=== PATIENT | female | born 1965 | race Caucasian/White ===

== ENCOUNTER 2016-10-30 11:03 | Emergency (ER) | payer MEDICAID ==
[~2016-10-30] VITALS: Ht 177.8 cm; Wt 89.4 kg
[~2016-10-30 11:03] MED LIST: FURO20TA; GLIP-116 OR; GLUCOPHAGE PO; INSLANTI; LISIPOW
[2016-10-30] MEDS ORDERED: SODIUM CHLORIDE 0.9% 1,000 ML IV ONE (11:44)
[2016-10-30 11:54] LABS: Basophils # (auto) 0 uL; Basophils % (auto) 0.3 % (0.0-2.0); CONDITION Y; Eosinophils # (auto) 0 uL; Eosinophils % (auto) 0.7 % (0.0-7.0); Hematocrit 40.2 % (36.0-46.0); Hemoglobin 13.8 g/dL (12.2-16.2); Lymphocytes # (auto) 2.1 uL; Lymphocytes % (auto) 33.1 % (10.0-50.0); Mean Corpuscular Hemoglobin 29.5 pg (28.0-32.0); Mean Corpuscular Hgb Conc. 34.3 g/dL (32.0-36.0); Mean Corpuscular Volume 85.8 fL (80.0-100.0); Monocytes # (auto) 0.5 uL; Monocytes % (auto) 7.4 % (0.0-12.0); Neutrophils # (auto) 3.8 uL; Neutrophils % (auto) 58.5 % (37.0-80.0); Platelet Count (auto) 314 10^3/uL (140-450); Red Cell Distribution Width 13.6 % (11.6-16.0); White Blood Cell 6.5 10^3/uL (4.4-10.8)
[2016-10-30 12:17] LABS: Albumin 3.9 g/dL (3.4-5.0); Alkaline Phosphatase 135 U/L (45-117); Anion Gap 9 (5-15); Aspartate Aminotransferase 17 U/L (15-37); BUN/Creatinine Ratio 25.4; Bilirubin, Total 0.4 mg/dL (0.2-1.0); Blood Urea Nitrogen 29 mg/dL (7-18); Calcium 9.8 mg/dL (8.5-10.1); Carbon Dioxide 26 mmol/L (21-32); Chloride 102 mmol/L (98-107); GFR African American 64 mL/min; GFR Non-African American 53 mL/min; Glucose 209 mg/dL (74-106); Magnesium 2.3 mg/dL (1.6-2.6); Potassium 3.9 mmol/L (3.5-5.1); Sodium 137 mmol/L (136-145); Total Protein 8.7 g/dL (6.4-8.2)
[2016-10-30 14:02] LABS: Urine Bilirubin Negative (Negative); Urine Blood TRACE /uL (Negative); Urine Color Yellow (Yellow); Urine Glucose 4+ mg/dL (Normal); Urine Hyaline Cast FEW /lpf (0 - 2); Urine Ketone Negative (Negative); Urine Mucus FEW (None Seen); Urine Nitrite Negative (Negative); Urine RBC 2 /hpf (0 - 4); Urine Squamous Epithelial Cell MOD /hpf (<5); Urine Urobilinogen Normal (Negative); Urine pH 5.5 (5.0-8.0)
[2016-10-30 15:08] VITALS: BP 160/88
== END 2016-10-30 16:07 | disposition home or self-care (01) ==
LOC: EDBD 11:03 → ER 11:03
DX: R53.1 Weakness (principal); E11.65 Type 2 diabetes mellitus with hyperglycemia; N39.0 Urinary tract infection, site not specified; Z86.73 Personal history of transient ischemic attack (TIA), and cerebral infarction without residual deficits; I50.9 Heart failure, unspecified; I11.0 Hypertensive heart disease with heart failure
CPT/HCPCS: 36415; 71020; 80053; 81001; 83735; 84443; 84484; 85025; 85379; 93005; 94761; 96360; 99285; J7030

== ENCOUNTER 2017-07-31 11:20 | Inpatient (IN) | payer MEDICAID ==
[~2017-07-31] VITALS: Ht 177.8 cm; Wt 82.7 kg
[2017-07-31] MEDS ORDERED: SODIUM CHLORIDE 0.9% 500 ML IV ONE (11:25)
[2017-07-31] MEDS ORDERED: DEXTROSE 50% SYRINGE 50 ML IV ONE (11:26)
[2017-07-31] MEDS ORDERED: DEXTROSE (50%) 50ML SYRG IV ONE ×2 (11:30→13:30)
[2017-07-31] MEDS ORDERED: D5W 5% 500 ML IV ONE (12:00)
[2017-07-31 12:05] LABS: Basophils # (auto) 0 uL; Basophils % (auto) 0.3 % (0.0-2.0); Eosinophils # (auto) 0.1 uL; Hematocrit 35.7 % (36.0-46.0); Hemoglobin 11.8 g/dL (12.2-16.2); Lymphocytes # (auto) 2.4 uL; Lymphocytes % (auto) 40.4 % (10.0-50.0); Mean Corpuscular Hemoglobin 28.5 pg (28.0-32.0); Mean Corpuscular Volume 86.3 fL (80.0-100.0); Monocytes # (auto) 0.4 uL; Monocytes % (auto) 6.3 % (0.0-12.0); Neutrophils # (auto) 3.2 uL; Nucleated Red Blood Cells % 0.1 %; Platelet Count (auto) 267 10^3/uL (140-450); Red Blood Cells 4.14 10^6/uL (4.0-5.20); Red Cell Distribution Width 13.3 % (11.8-14.3); White Blood Cell 6.1 10^3/uL (4.4-10.8)
[2017-07-31 12:19] LABS: Alanine Aminotransferase 17 U/L (13-56); Albumin 3.5 g/dL (3.4-5.0); Alkaline Phosphatase 92 U/L (45-117); Anion Gap 10 (5-15); Aspartate Aminotransferase 12 U/L (15-37); BUN/Creatinine Ratio 20.7; Bilirubin, Total 0.3 mg/dL (0.2-1.0); Blood Urea Nitrogen 28 mg/dL (7-18); Calcium 9.3 mg/dL (8.5-10.1); Carbon Dioxide 26 mmol/L (21-32); Chloride 104 mmol/L (98-107); GFR African American 53 mL/min; GFR Non-African American 43 mL/min; Glucose 91 mg/dL (74-106); Magnesium 2.2 mg/dL (1.6-2.6); Potassium 3.1 mmol/L (3.5-5.1); Sodium 140 mmol/L (136-145); Total Protein 7.8 g/dL (6.4-8.2)
[2017-07-31 12:34] LABS: Urine Bacteria FEW /hpf (None Seen); Urine Blood Negative /uL (Negative); Urine Mucus FEW (None Seen); Urine Specific Gravity 1.018 (1.001-1.035); Urine WBC 11 /hpf (0 - 5)
[2017-07-31] MEDS ORDERED: ACCU-CHEK COMFORT CURVE STRIP VI PRN (14:15)
[2017-07-31] MEDS ORDERED: DEXTROSE (50%) 50ML SYRG IV PRN (14:15)
[2017-07-31] MEDS ORDERED: TEMAZEPAM 15 MG CAP PO PRN (14:30)
[2017-07-31] MEDS ORDERED: MORPHINE SULFATE 8mg/ml INJ SDV IV PRN ×2 (14:30)
[2017-07-31] MEDS ORDERED: HYDROcodone-ACET 5/325MG TAB PO PRN (14:30)
[2017-07-31] MEDS ORDERED: ASCORBIC ACID 500 MG TAB PO ONE (14:30)
[2017-07-31] MEDS ORDERED: FAMOTIDINE 20 MG TAB PO ONE (14:30)
[2017-07-31] MEDS ORDERED: cefTRIAXone 1GM/10ml IVPUSH 10 ML IV ONE ×2 (14:30→14:45)
[2017-07-31] MEDS ORDERED: ZINC SULFATE 220 MG CAP PO ONE (14:30)
[2017-07-31] MEDS ORDERED: DEXTROSE 10% 1,000 ML IV ONE (14:30)
[2017-07-31] MEDS ORDERED: DOCUSATE SOD 100 MG CAP PO PRN (14:30)
[2017-07-31] MEDS ORDERED: NITROGLYCERIN 0.4 MG SL TAB SL PRN (14:30)
[2017-07-31] MEDS: ONDANSETRON HCL 4 MG/2 ML VIAL IV PRN (15:53)
[2017-07-31] MEDS: ACETAMINOPHEN 325 MG TAB PO PRN (17:21)
[2017-07-31] MEDS: ASCORBIC ACID 500 MG TAB PO SCH (22:00)
[2017-07-31] MEDS: FAMOTIDINE 20 MG TAB PO SCH (22:00)
[2017-07-31] MEDS: CLINDAMYCIN 300MG IV 50 ML IV SCH (22:59)
[2017-08-01 05:11] LABS: Basophils # (auto) 0 uL; Basophils % (auto) 0.3 % (0.0-2.0); Eosinophils # (auto) 0.1 uL; Eosinophils % (auto) 1.1 % (0.0-7.0); Hematocrit 34.3 % (36.0-46.0); Hemoglobin 11.7 g/dL (12.2-16.2); Lymphocytes # (auto) 2.8 uL; Lymphocytes % (auto) 48.8 % (10.0-50.0); Mean Corpuscular Hemoglobin 29.3 pg (28.0-32.0); Mean Corpuscular Hgb Conc. 33.9 g/dL (32.0-36.0); Mean Corpuscular Volume 86.3 fL (80.0-100.0); Monocytes # (auto) 0.5 uL; Monocytes % (auto) 8.3 % (0.0-12.0); Neutrophils # (auto) 2.3 uL; Neutrophils % (auto) 41.5 % (37.0-80.0); Nucleated Red Blood Cells % 0.1 %; Platelet Count (auto) 226 10^3/uL (140-450); Red Blood Cells 3.98 10^6/uL (4.0-5.20); Red Cell Distribution Width 13.6 % (11.8-14.3); White Blood Cell 5.6 10^3/uL (4.4-10.8)
[2017-08-01 05:15] LABS: BUN/Creatinine Ratio 18.9; Calcium 9.2 mg/dL (8.5-10.1); Potassium 4.3 mmol/L (3.5-5.1)
[2017-08-01 05:17] LABS: Bilirubin, Total 0.2 mg/dL (0.2-1.0); Total Protein 7.2 g/dL (6.4-8.2)
[2017-08-01] MEDS: CLINDAMYCIN 300MG IV 50 ML IV SCH ×2 (06:00→14:18)
[2017-08-01] MEDS: ACETAMINOPHEN 325 MG TAB PO PRN (07:49)
[2017-08-01 08:10] VITALS: BP_SYST 123; BP_SYST 94; BP_DIAS 61; BP_DIAS 73
[2017-08-01] MEDS ORDERED: cefTRIAXone 1GM/10ml IVPUSH 10 ML IV SCH (09:00)
[2017-08-01] MEDS: ZINC SULFATE 220 MG CAP PO SCH (10:00)
[2017-08-01] MEDS: FAMOTIDINE 20 MG TAB PO SCH ×3 (10:00→21:26)
[2017-08-01] MEDS: ASCORBIC ACID 500 MG TAB PO SCH ×3 (10:00→21:26)
[2017-08-01] MEDS: MULTIPLE VITAMIN TAB PO SCH (10:00)
[2017-08-01] MEDS: cefTRIAXone 1GM/10ml IVPUSH 10 ML IV SCH (10:29)
[2017-08-01 11:50] VITALS: BP 144/87
[2017-08-01] MEDS: SILVER SULFADIAZINE 1 % TOPICAL CREAM 50GM TOP SCH (13:04)
[2017-08-01] MEDS: ONDANSETRON HCL 4 MG/2 ML VIAL IV PRN (13:05)
[2017-08-01 15:51] VITALS: BP 164/89
[2017-08-01] MEDS: SODIUM CHLORIDE 0.9% 1,000 ML IV SCH (16:00)
[2017-08-01 19:58] VITALS: BP 167/80
[2017-08-01 22:00] VITALS: BP 152/70
[2017-08-02] VITALS (9 sets, daily range): BP systolic 139–173; BP diastolic 69–90
[2017-08-02 06:40] LABS: Basophils # (auto) 0 uL; Basophils % (auto) 0.4 % (0.0-2.0); Eosinophils # (auto) 0.1 uL; Eosinophils % (auto) 1.4 % (0.0-7.0); Hemoglobin 11.6 g/dL (12.2-16.2); Lymphocytes % (auto) 38.3 % (10.0-50.0); Mean Corpuscular Hemoglobin 29.5 pg (28.0-32.0); Mean Corpuscular Hgb Conc. 34.1 g/dL (32.0-36.0); Mean Corpuscular Volume 86.7 fL (80.0-100.0); Monocytes # (auto) 0.4 uL; Neutrophils # (auto) 2.8 uL; Neutrophils % (auto) 51.9 % (37.0-80.0); Nucleated Red Blood Cells % 0.1 %; Platelet Count (auto) 238 10^3/uL (140-450); Red Blood Cells 3.92 10^6/uL (4.0-5.20); Red Cell Distribution Width 13.4 % (11.8-14.3); White Blood Cell 5.3 10^3/uL (4.4-10.8)
[2017-08-02 07:01] LABS: Anion Gap 8 (5-15); BUN/Creatinine Ratio 20.7; Blood Urea Nitrogen 23 mg/dL (7-18); Calcium 9.2 mg/dL (8.5-10.1); Carbon Dioxide 27 mmol/L (21-32); Chloride 105 mmol/L (98-107); Cholesterol 265 mg/dL (< 200); GFR African American 66 mL/min; GFR Non-African American 54 mL/min; Glucose 282 mg/dL (74-106); HDL Cholesterol 32 mg/dL (40-59); Magnesium 2.2 mg/dL (1.6-2.6); Potassium 4.4 mmol/L (3.5-5.1); Sodium 140 mmol/L (136-145); Triglycerides 526 mg/dL (< 150)
[2017-08-02] MEDS: SODIUM CHLORIDE 0.9% 1,000 ML IV SCH (07:52)
[2017-08-02] MEDS: cefTRIAXone 1GM/10ml IVPUSH 10 ML IV SCH (07:53)
[2017-08-02] MEDS: ASCORBIC ACID 500 MG TAB PO SCH ×3 (09:44→21:44)
[2017-08-02] MEDS: FAMOTIDINE 20 MG TAB PO SCH ×3 (09:44→21:43)
[2017-08-02] MEDS: MULTIPLE VITAMIN TAB PO SCH (09:44)
[2017-08-02] MEDS: ZINC SULFATE 220 MG CAP PO SCH (09:44)
[2017-08-02] MEDS: SILVER SULFADIAZINE 1 % TOPICAL CREAM 50GM TOP SCH (09:45)
[2017-08-02] MEDS ORDERED: SODIUM CHLORIDE 0.9% 1,000 ML IV SCH (11:00)
[2017-08-02] MEDS: LISINOPRIL 20 MG TAB PO SCH (11:59)
[2017-08-02] MEDS ORDERED: INSULIN LANTUS (GLARGINE) 1 /0.01ml (100units/ml) SC SCH (22:00)
[2017-08-03 00:13] VITALS: BP 162/76
[2017-08-03 05:36] VITALS: BP 149/77
[2017-08-03 06:29] LABS: Basophils # (auto) 0 uL; Basophils % (auto) 0.5 % (0.0-2.0); Eosinophils # (auto) 0.1 uL; Eosinophils % (auto) 1.6 % (0.0-7.0); Hematocrit 33.6 % (36.0-46.0); Hemoglobin 11.6 g/dL (12.2-16.2); Lymphocytes # (auto) 2.5 uL; Lymphocytes % (auto) 44.7 % (10.0-50.0); Mean Corpuscular Hemoglobin 29.8 pg (28.0-32.0); Mean Corpuscular Hgb Conc. 34.5 g/dL (32.0-36.0); Mean Corpuscular Volume 86.2 fL (80.0-100.0); Monocytes # (auto) 0.5 uL; Monocytes % (auto) 9.1 % (0.0-12.0); Neutrophils # (auto) 2.5 uL; Neutrophils % (auto) 44.1 % (37.0-80.0); Platelet Count (auto) 215 10^3/uL (140-450); Red Blood Cells 3.89 10^6/uL (4.0-5.20); Red Cell Distribution Width 13.4 % (11.8-14.3); White Blood Cell 5.7 10^3/uL (4.4-10.8)
[2017-08-03 06:53] LABS: Calcium 9.4 mg/dL (8.5-10.1); Potassium 4.2 mmol/L (3.5-5.1)
[2017-08-03 08:24] VITALS: BP 121/62
[2017-08-03] MEDS: LISINOPRIL 20 MG TAB PO SCH (10:00)
[2017-08-03] MEDS ORDERED: METOPROLOL SUCCINATE XL 50 MG TAB PO SCH (10:00)
[2017-08-03] MEDS: ZINC SULFATE 220 MG CAP PO SCH (10:04)
[2017-08-03] MEDS: FAMOTIDINE 20 MG TAB PO SCH (10:04)
[2017-08-03] MEDS: MULTIPLE VITAMIN TAB PO SCH (10:07)
[2017-08-03] MEDS: ASCORBIC ACID 500 MG TAB PO SCH (10:07)
[2017-08-03] MEDS: SILVER SULFADIAZINE 1 % TOPICAL CREAM 50GM TOP SCH (10:08)
[2017-08-03] MEDS ORDERED: ONDANSETRON HCL 4 MG/2 ML VIAL IV PRN (11:00)
[2017-08-03] MEDS ORDERED: SODIUM CHLORIDE 0.9% 1,000 ML IV ONE (11:00)
[2017-08-03 12:32] VITALS: BP 143/76
[2017-08-03] MEDS ORDERED: InsuLIN REG 1unit/0.01ml Soln (100units/ml) SC SCH ×2 (17:00→22:00)
[2017-08-03 17:05] VITALS: BP 151/79
[2017-08-03] MEDS ORDERED: INSULIN LANTUS (GLARGINE) 1 /0.01ml (100units/ml) SC SCH (22:00)
== END 2017-08-03 21:00 | disposition left against medical advice (07) | DRG 204 ==
LOC: ER 11:20 → EDBD 11:20 → OVERFLOW 11:21 → DOU IN ICU 08-01 08:09 → TELE-WESTW 08-01 21:48
PROVIDERS: ADMIT Internal Medicine; ATTEND Internal Medicine
DX: I95.1 Orthostatic hypotension (principal); I13.0 Hypertensive heart and chronic kidney disease with heart failure and stage 1 through stage 4 chronic kidney disease, or unspecified chronic kidney disease; E11.21 Type 2 diabetes mellitus with diabetic nephropathy; E11.40 Type 2 diabetes mellitus with diabetic neuropathy, unspecified; I50.9 Heart failure, unspecified; E11.621 Type 2 diabetes mellitus with foot ulcer; N39.0 Urinary tract infection, site not specified; E11.22 Type 2 diabetes mellitus with diabetic chronic kidney disease; E87.6 Hypokalemia; L97.509 Non-pressure chronic ulcer of other part of unspecified foot with unspecified severity; D63.8 Anemia in other chronic diseases classified elsewhere; E11.649 Type 2 diabetes mellitus with hypoglycemia without coma; E78.5 Hyperlipidemia, unspecified; F17.200 Nicotine dependence, unspecified, uncomplicated; T38.3X5A Adverse effect of insulin and oral hypoglycemic [antidiabetic] drugs, initial encounter; Z79.82 Long term (current) use of aspirin; Z82.49 Family history of ischemic heart disease and other diseases of the circulatory system; Z83.3 Family history of diabetes mellitus; Z86.73 Personal history of transient ischemic attack (TIA), and cerebral infarction without residual deficits; Z98.51 Tubal ligation status; Z88.1 Allergy status to other antibiotic agents; Y92.89 Other specified places as the place of occurrence of the external cause; Z79.899 Other long term (current) drug therapy
CPT/HCPCS: 36415; 70450; 71045; 80048; 80053; 80061; 81001; 82962; 83036; 83735; 84443; 84484; 85025; 87081; 87086; 93005; 93306; 93886; 96374; 96376; 97110; 97116; 97163; 97530; G0378; J1815; J2405; J3490

== ENCOUNTER 2017-08-09 02:03 | Emergency (ER) | payer MEDICAID ==
[~2017-08-09] VITALS: Ht 177.8 cm; Wt 81.6 kg
[2017-08-09 02:57] LABS: Basophils # (auto) 0 uL; Basophils % (auto) 0.6 % (0.0-2.0); Eosinophils # (auto) 0 uL; Eosinophils % (auto) 0.6 % (0.0-7.0); Hematocrit 33.6 % (36.0-46.0); Hemoglobin 11.4 g/dL (12.2-16.2); Lymphocytes # (auto) 2.2 uL; Lymphocytes % (auto) 34.9 % (10.0-50.0); Mean Corpuscular Hemoglobin 29.1 pg (28.0-32.0); Mean Corpuscular Hgb Conc. 33.9 g/dL (32.0-36.0); Monocytes # (auto) 0.5 uL; Monocytes % (auto) 8.1 % (0.0-12.0); Neutrophils # (auto) 3.5 uL; Neutrophils % (auto) 55.8 % (37.0-80.0); Platelet Count (auto) 244 10^3/uL (140-450); Red Blood Cells 3.91 10^6/uL (4.0-5.20); Red Cell Distribution Width 13.8 % (11.8-14.3); White Blood Cell 6.3 10^3/uL (4.4-10.8)
[2017-08-09 03:12] LABS: INR 0.97 (0.9-1.15); Partial Thromboplastin Time 26.4 sec (23.78-33.04); Prothrombin Time 10.4 sec (9.27-12.13)
[2017-08-09 03:17] LABS: Alanine Aminotransferase 18 U/L (13-56); Albumin 3.2 g/dL (3.4-5.0); Anion Gap 11 (5-15); Aspartate Aminotransferase 13 U/L (15-37); BUN/Creatinine Ratio 19.4; Blood Alcohol < 3.0 mg/dL (0-5); Blood Urea Nitrogen 24 mg/dL (7-18); Calcium 8.7 mg/dL (8.5-10.1); Carbon Dioxide 25 mmol/L (21-32); Chloride 104 mmol/L (98-107); GFR African American 58 mL/min; GFR Non-African American 48 mL/min; Glucose 136 mg/dL (74-106); Magnesium 2.1 mg/dL (1.6-2.6); Potassium 3.4 mmol/L (3.5-5.1); Sodium 140 mmol/L (136-145)
[2017-08-09 03:22] LABS: Alkaline Phosphatase 91 U/L (45-117); Bilirubin, Total 0.2 mg/dL (0.2-1.0); Total Protein 7.7 g/dL (6.4-8.2)
[2017-08-09 04:03] LABS: Alcohol, Urine < 3.0 mg/dL (0-5); Amphetamine Screen, Urine POSITIVE (NEGATIVE); Barbiturate Scree,Urine NEGATIVE (NEGATIVE); Benzodiazephine Screen, Urine NEGATIVE (NEGATIVE); Cannabinoid Screen, Urine NEGATIVE (NEGATIVE); Cocaine Screen, Urine NEGATIVE (NEGATIVE); Opiate Scree,Urine NEGATIVE (NEGATIVE); Phencyclidine Screen, Urine NEGATIVE (NEGATIVE)
[2017-08-09 04:06] VITALS: BP 119/70
[2017-08-09 04:59] LABS: Urine Bacteria FEW /hpf (None Seen); Urine Blood Negative /uL (Negative); Urine Hyaline Cast FEW /lpf (0 - 2); Urine Mucus FEW (None Seen); Urine Specific Gravity 1.023 (1.001-1.035); Urine WBC 5 /hpf (0 - 5)
== END 2017-08-09 04:05 | disposition home or self-care (01) ==
LOC: EDBD 02:03 → EDUNIT# 02:03 → ER 02:12
DX: E11.649 Type 2 diabetes mellitus with hypoglycemia without coma (principal); I11.0 Hypertensive heart disease with heart failure; I50.9 Heart failure, unspecified; R41.82 Altered mental status, unspecified; E78.5 Hyperlipidemia, unspecified; Z86.73 Personal history of transient ischemic attack (TIA), and cerebral infarction without residual deficits; Z79.4 Long term (current) use of insulin; Z98.51 Tubal ligation status
CPT/HCPCS: 36415; 70450; 71045; 80053; 80307; 80320; 81001; 82962; 83735; 84484; 85025; 85610; 85730

== ENCOUNTER → 2023-07-11 | Emergency (ER) | payer OTHER, MEDICAID ==
[~2023-07-11] VITALS: Ht 177.8 cm; Wt 70.0 kg
[~2023-07-11] MED LIST changes: +AMLO1TAB22 PO; +ASPI81CH59 PO; +BENA10TA90 PO; +CANA100T PO; +CARV3.1240 PO; +CLOP75TA70 PO; +DOXY-267 PO; +EZET-10 PO; +FURO1TAB33; -FURO20TA; -GLIP-116 OR; +GLIP10TA9 OR; +INSU1.2I SC; +ROSU20TA56 PO; +SITA100T7 PO; +SPIR25TA8 PO; +[UNRECOGNIZED DRUG - CODE] IV
[2023-07-11 15:15] VITALS: BP 138/62; PULSE 77; RESP 14; O2SAT 98
== END | disposition left against medical advice (07) ==
LOC: ER 15:03
DX: Z48.00 Encounter for change or removal of nonsurgical wound dressing (principal); Z53.21 Procedure and treatment not carried out due to patient leaving prior to being seen by health care provider

== ENCOUNTER 2023-07-12 12:10 | Inpatient (IN) | payer OTHER, MEDICAID ==
[~2023-07-12] VITALS: Ht 177.8 cm; Wt 73.0 kg
[~2023-07-12 12:10] MED LIST changes: -AMLO1TAB22 PO; -ASPI81CH59 PO; -BENA10TA90 PO; -CANA100T PO; -CARV3.1240 PO; -CLOP75TA70 PO; -DOXY-267 PO; -EZET-10 PO; -INSU1.2I SC; -ROSU20TA56 PO; -SITA100T7 PO; -SPIR25TA8 PO; -[UNRECOGNIZED DRUG - CODE] IV
[2023-07-12] MEDS: PIPERACILLIN-TAZOB 3.375GM 100 ML IV ONE (13:42)
[2023-07-12] MEDS: SODIUM CHLORIDE 0.9% 1,000 ML IV ONE ×2 (13:42→23:17)
[2023-07-12] MEDS: CLINDAMYCIN 600MG IV 50 ML IV ONE (13:42)
[2023-07-12 14:15] LABS: Basophils # (auto) 0 10 ^3/uL (0-0.2); Basophils % (auto) 0.5 % (0.0-2.0); Eosinophils # (auto) 0 10 ^3/uL (0-0.8); Eosinophils % (auto) 0.4 % (0.0-7.0); Hemoglobin 9.1 g/dL (12.2-16.2); Monocytes # (auto) 0.5 10 ^3/uL (0-1.3); White Blood Cell 6.3 10^3/uL (4.4-10.8)
[2023-07-12 14:18] LABS: Anion Gap 6 (5-15); Carbon Dioxide 25 mmol/L (20-30); Chloride 104 mmol/L (98-107); Hematocrit 29.4 % (36.0-46.0); Lymphocytes # (auto) 1.2 10 ^3/uL (0.4-5.4); Lymphocytes % (auto) 18.6 % (10.0-50.0); Mean Corpuscular Hemoglobin 25.5 pg (28.0-32.0); Mean Corpuscular Hgb Conc. 30.9 g/dL (32.0-36.0); Mean Corpuscular Volume 82.6 fL (80.0-100.0); Monocytes % (auto) 8.6 % (0.0-12.0); Neutrophils # (auto) 4.5 10 ^3/uL (1.6-8.6); Neutrophils % (auto) 71.9 % (37.0-80.0); Nucleated Red Blood Cells % 0.1 %; Potassium 4.1 mmol/L (3.5-5.1); Red Blood Cells 3.57 10^6/uL (4.0-5.20); Red Cell Distribution Width 16.3 % (11.8-14.3); Sodium 135 mmol/L (136-145)
[2023-07-12 14:19] LABS: Calcium 9.6 mg/dL (8.5-10.1)
[2023-07-12 14:23] LABS: Glucose 253 mg/dL (74-106)
[2023-07-12 14:24] LABS: BUN/Creatinine Ratio 16.7 (10.0-20.0); Blood Urea Nitrogen 18 mg/dL (9-23)
[2023-07-12 16:28] VITALS: PULSE 74; RESP 19; O2SAT 96
[2023-07-12] MEDS ORDERED: NITROGLYCERIN 0.4 MG SL TAB SL PRN (18:15)
[2023-07-12] MEDS ORDERED: HYDROcodone-ACET 5/325MG TAB PO PRN (18:15)
[2023-07-12] MEDS ORDERED: DEXTROSE (50%) 50ML SYRG IV PRN (18:15)
[2023-07-12] MEDS ORDERED: ACETAMINOPHEN 325 MG TAB PO PRN (18:15)
[2023-07-12] MEDS ORDERED: DOCUSATE SOD 100 MG CAP PO PRN (18:15)
[2023-07-12] MEDS ORDERED: MORPHINE SULFATE INJ 2 MG/ml SYRG IV PRN ×2 (18:15)
[2023-07-12] MEDS ORDERED: CLOP75TA70 PO (18:33)
[2023-07-12] MEDS ORDERED: CARV3.1240 PO (18:33)
[2023-07-12] MEDS ORDERED: ROSU20TA56 PO (18:33)
[2023-07-12] MEDS ORDERED: SPIR25TA8 PO (18:33)
[2023-07-12] MEDS ORDERED: EZET-10 PO (18:33)
[2023-07-12] MEDS ORDERED: [UNRECOGNIZED DRUG - CODE] IV (18:33)
[2023-07-12] MEDS ORDERED: DAPTOMYCIN 500 MG IV SCH (19:30)
[2023-07-12] MEDS ORDERED: DOXY-267 PO (19:32)
[2023-07-12] MEDS ORDERED: BENA10TA90 PO (19:32)
[2023-07-12] MEDS ORDERED: AMLO1TAB22 PO (19:32)
[2023-07-12] MEDS ORDERED: CARVEDILOL 3.125 MG TAB PO SCH (22:00)
[2023-07-12] MEDS ORDERED: ATORVASTATIN 20 MG TAB PO SCH (22:00)
[2023-07-12] MEDS: DAPTOmycin 600 MG in SODIUM CHL 0.9% 50 ML IV SCH (22:30)
[2023-07-12] MEDS ORDERED: ASPI81CH59 PO (23:06)
[2023-07-12] MEDS ORDERED: CANA100T PO (23:06)
[2023-07-12] MEDS ORDERED: INSU1.2I SC (23:06)
[2023-07-12] MEDS: DOXYCYCLINE 100 MG TAB/CAP PO SCH (23:07)
[2023-07-12 23:11] VITALS: PULSE 74; RESP 17; O2SAT 97
[2023-07-12] MEDS: InsuLIN REG 1unit/0.01ml Soln (100units/ml) SC SCH (23:12)
[2023-07-12] MEDS: ACCU-CHEK COMFORT CURVE STRIP VI SCH (23:16)
[2023-07-13] VITALS (8 sets, daily range): BP systolic 98–159; BP diastolic 62–73; PULSE 66–82; RESP 16–21; TEMP 97.4–98.6; O2SAT 95–98
[2023-07-13 08:46] LABS: Basophils # (auto) 0 10 ^3/uL (0-0.2); Basophils % (auto) 0.7 % (0.0-2.0); Eosinophils # (auto) 0.1 10 ^3/uL (0-0.8); Eosinophils % (auto) 1.5 % (0.0-7.0); Hematocrit 25.3 % (36.0-46.0); Hemoglobin 7.8 g/dL (12.2-16.2); Lymphocytes # (auto) 1.1 10 ^3/uL (0.4-5.4); Lymphocytes % (auto) 25.8 % (10.0-50.0); Mean Corpuscular Hemoglobin 25.1 pg (28.0-32.0); Mean Corpuscular Hgb Conc. 30.9 g/dL (32.0-36.0); Mean Corpuscular Volume 81.3 fL (80.0-100.0); Monocytes # (auto) 0.4 10 ^3/uL (0-1.3); Monocytes % (auto) 9.3 % (0.0-12.0); Neutrophils # (auto) 2.7 10 ^3/uL (1.6-8.6); Neutrophils % (auto) 62.7 % (37.0-80.0); Nucleated Red Blood Cells % 0.1 %; Red Blood Cells 3.12 10^6/uL (4.0-5.20); Red Cell Distribution Width 15.6 % (11.8-14.3); White Blood Cell 4.3 10^3/uL (4.4-10.8)
[2023-07-13 08:55] LABS: Alanine Aminotransferase 13 U/L (7-40); Alkaline Phosphatase 95 U/L (46-116); Calcium 8.8 mg/dL (8.5-10.1); Carbon Dioxide 27 mmol/L (20-30); Chloride 108 mmol/L (98-107); Triglycerides 100 mg/dL (< 150)
[2023-07-13 08:56] LABS: Anion Gap 5 (5-15); Aspartate Aminotransferase 17 U/L (13-40); BUN/Creatinine Ratio 17.8 (10.0-20.0); Bilirubin, Total 0.3 mg/dL (0.2-1.0); Blood Urea Nitrogen 18 mg/dL (9-23); Cholesterol 173 mg/dL (< 200); Glucose 175 mg/dL (74-106); HDL Cholesterol 37 mg/dL (40-59); LDL Cholesterol 116 mg/dL (< 100); Potassium 3.8 mmol/L (3.5-5.1); Sodium 140 mmol/L (136-145); Total Protein 6.2 g/dL (5.7-8.2)
[2023-07-13] MEDS: EZETIMIBE 10 MG PO SCH (10:00)
[2023-07-13] MEDS ORDERED: DAPTOMYCIN 500 MG IV SCH (10:00)
[2023-07-13] MEDS ORDERED: SPIRONOLACTONE 25 MG TAB PO SCH (10:00)
[2023-07-13] MEDS: PANTOPRAZOLE 40 MG/10 ML VIAL INJ IV SCH (10:00)
[2023-07-13] MEDS ORDERED: SITA100T7 PO (10:13)
[2023-07-13] MEDS: ENOXAPARIN SOD 40 MG/0.4 ML SYRINGE SC SCH (10:15)
[2023-07-13] MEDS: amLODIPine BESYLATE 5 MG TAB PO SCH (10:16)
[2023-07-13] MEDS: DAKINS HALF STR 0.25% (NaHypochlorite) 473 ML TOPICAL SOL TOP SCH (21:34)
[2023-07-14 05:00] VITALS: BP 178/81; PULSE 68; RESP 20; TEMP 98.3; O2SAT 98
[2023-07-14 08:10] VITALS: BP 151/63; PULSE 67; RESP 17; TEMP 98.2; O2SAT 97
[2023-07-14 11:58] LABS: INR 1.16 (0.9-1.15); Partial Thromboplastin Time 31.2 SEC (24.5-34.5); Prothrombin Time 12.2 sec (9.3-11.8)
[2023-07-14 12:34] VITALS: BP 159/74; PULSE 68; RESP 18; TEMP 97.8; O2SAT 99
[2023-07-14 17:00] VITALS: BP 142/58; PULSE 71; RESP 16; TEMP 98.8; O2SAT 97
[2023-07-14 20:00] VITALS: PULSE 85; RESP 18; O2SAT 98
[2023-07-14 21:00] VITALS: BP 132/55; PULSE 76; RESP 18; TEMP 98.4; O2SAT 98
[2023-07-15] VITALS (8 sets, daily range): BP systolic 134–162; BP diastolic 56–76; PULSE 70–77; RESP 15–19; TEMP 98.1–98.6; O2SAT 95–98
[2023-07-15] MEDS: hydrALAZINE HCL 20 MG/ML VL IV PRN (04:15)
[2023-07-16] VITALS (7 sets, daily range): BP systolic 130–161; BP diastolic 51–75; PULSE 66–79; RESP 17–18; TEMP 97.9–98.8; O2SAT 95–99
[2023-07-17] VITALS (7 sets, daily range): BP systolic 118–156; BP diastolic 65–93; PULSE 66–83; RESP 17–18; TEMP 98–99.5; O2SAT 95–97
[2023-07-17] MEDS: ERTAPENEM SOD INJ 1 GM in SODIUM CHL 0.9% 50 ML IV ONE (12:15)
[2023-07-18 05:00] VITALS: BP 134/66; PULSE 78; RESP 18; TEMP 98; O2SAT 95
[2023-07-18] MEDS: ONDANSETRON HCL 4 MG/2 ML VIAL IV PRN (06:22)
[2023-07-18 08:00] VITALS: PULSE 69; RESP 18; O2SAT 98
[2023-07-18 08:36] VITALS: BP 146/69; PULSE 69; RESP 18; TEMP 98.2; O2SAT 98
[2023-07-18] MEDS: ERTAPENEM SOD INJ 1 GM in SODIUM CHL 0.9% 50 ML IV SCH (10:34)
[2023-07-18 12:36] VITALS: BP 146/69; PULSE 70; RESP 18; TEMP 36.8; O2SAT 98
[2023-07-18 12:53] VITALS: BP 166/71; PULSE 70; RESP 18; TEMP 98.1; O2SAT 98
== END 2023-07-18 13:45 | disposition home health service (06) | DRG 623 ==
LOC: ER 12:10 → OVERFLOW 18:19 → WEST WING 22:52 → EAST 07-13 05:15
PROVIDERS: ADMIT Family Medicine; ATTEND Family Medicine
PROC: 0JBQ0ZZ Excision of Right Foot Subcutaneous Tissue and Fascia, Open Approach (ICD-10-PCS; principal; 2023-07-17)
DX: E11.621 Type 2 diabetes mellitus with foot ulcer (principal); E44.0 Moderate protein-calorie malnutrition; L03.115 Cellulitis of right lower limb; M86.671 Other chronic osteomyelitis, right ankle and foot; L97.411 Non-pressure chronic ulcer of right heel and midfoot limited to breakdown of skin; M84.474A Pathological fracture, right foot, initial encounter for fracture; E11.69 Type 2 diabetes mellitus with other specified complication; N17.9 Acute kidney failure, unspecified; I50.9 Heart failure, unspecified; I11.0 Hypertensive heart disease with heart failure; E11.65 Type 2 diabetes mellitus with hyperglycemia; E78.00 Pure hypercholesterolemia, unspecified; J43.9 Emphysema, unspecified; E11.51 Type 2 diabetes mellitus with diabetic peripheral angiopathy without gangrene; Z86.73 Personal history of transient ischemic attack (TIA), and cerebral infarction without residual deficits; Z88.8 Allergy status to other drugs, medicaments and biological substances; Z98.51 Tubal ligation status; I25.2 Old myocardial infarction; Z89.511 Acquired absence of right leg below knee; Z68.23 Body mass index [BMI] 23.0-23.9, adult; Z79.4 Long term (current) use of insulin
CPT/HCPCS: 36415; 71045; 73700; 80048; 80053; 80061; 82962; 83036; 83605; 85025; 85610; 85730; 87040; 87077; 87081; 87186; 87205; 93005; 93926; 93971; C9113; G0378; J1335; J1815; J2405